=== PATIENT | male | born 1955 | race Caucasian/White ===

== ENCOUNTER 2023-01-24 15:25 | Outpatient (CLI) | payer MEDICARE | END 2023-01-24 15:26 | disposition home or self-care (01) | LOC: SCSRAD 15:25 | PROVIDERS: ATTEND Family Medicine | DX: M47.22 Other spondylosis with radiculopathy, cervical region (principal); M43.12 Spondylolisthesis, cervical region | CPT/HCPCS: 72052 ==

== ENCOUNTER 2023-08-02 13:41 | Inpatient (IN) | payer OTHER, MEDICARE ==
[~2023-08-02 13:41] MED LIST: Iopamidol-370 76% 500 ML MDV (1 ML CHARGE) ONE
[2023-08-02] MEDS ORDERED: Morphine 2 MG/ML VIAL SLOW IVP PRN (15:02)
[2023-08-02] MEDS ORDERED: Ondansetron PF 4 MG/2 ML Vial IVP PRN (15:02)
[2023-08-02] MEDS ORDERED: Ipratropium/Albuterol 3 ML NEB NEB PRN (15:02)
[2023-08-02] MEDS ORDERED: traMADol HCl 50 MG TAB PO PRN (15:05)
[2023-08-02] MEDS ORDERED: Cyclobenzaprine 10 MG TAB PO PRN (15:05)
[2023-08-02 15:10] LABS: #Basophils 0.1 thou/uL (0.0-0.2); #Eosinphils 0.1 thou/uL (0.0-0.7); #Monocytes 0.4 thou/uL (0.11-0.59); #Neutrophils 6.2 thou/uL (1.40-6.50); %Basophils 0.6 % (0.0-1.0); %Eosinophils 0.6 % (0.0-10.0); %Lymphocytes 12.8 % (21.0-51.0); %Monocytes 5.7 % (0.0-10.0); %Neutrophils 79.7 % (42.0-75.0); Hemoglobin 14.9 g/dL (14.0-18.0); Mean Corpuscular HGB CONC 33.9 g/dL (32.0-36.0); Mean Corpuscular Hemoglobin 32.3 pg (27.0-31.0); Mean Corpuscular Volume 95.4 fl (78.0-98.0); Mean Platelet Volume 11.7 fL (7.4-10.4); RBC Distribution Width 12.8 % (11.5-14.5); Red Blood Cell (RBC) Count 4.61 mill/uL (4.70-6.10); White Blood Cell (WBC) Count 7.7 10x3/uL (4.8-10.8)
[2023-08-02 15:13] LABS: Platelet Count 137 10x3/uL (130-400)
[2023-08-02 15:17] LABS: ALT (SGPT) 25 U/L (8-55); AST (SGOT) 32 U/L (5-34); Albumin 4.6 g/dL (3.4-4.8); Alkaline Phosphatase 45 U/L (40-110); Anion Gap 16 mmol/L (10-20); BUN (Urea Nitrogen) 30 mg/dL (8.4-25.7); Bilirubin, Total 0.8 mg/dL (0.2-1.2); Calc. Creatinine Clearance 0 mL/min (70-130); Calcium 9.6 mg/dL (7.8-10.44); Carbon Dioxide 22 mmol/L (23-31); Chloride 103 mmol/L (98-107); Estimated GFR 74; Globulin 2.6 g/dL (2.4-3.5); Glucose 97 mg/dL (80-115); Potassium 3.5 mmol/L (3.5-5.1); Protein, Total 7.2 g/dL (5.8-8.1); Sodium 137 mmol/L (136-145)
[2023-08-02] MEDS: traMADol HCl 50 MG TAB PO SCH ×2 (17:40→23:05)
[2023-08-02] MEDS: Acetaminophen 500 MG TAB PO SCH ×2 (17:41→23:06)
[2023-08-02] MEDS: Sodium Chloride 0.9% 1,000 ML IV SCH (17:41)
[2023-08-02 17:58] VITALS: BMI 27.3
[2023-08-02] MEDS: Senokot S 8.6-50 MG TAB PO SCH (21:11)
[2023-08-02] MEDS: Famotidine/PF 20 mg/2ml Vial SLOW IVP SCH (21:12)
[2023-08-03] MEDS: Sodium Chloride 0.9% 1,000 ML IV SCH (01:57)
[2023-08-03 05:41] LABS: Anion Gap 12 mmol/L (10-20); BUN (Urea Nitrogen) 22 mg/dL (8.4-25.7); Calc. Creatinine Clearance 93 mL/min (70-130); Calcium 8.2 mg/dL (7.8-10.44); Carbon Dioxide 24 mmol/L (23-31); Chloride 107 mmol/L (98-107); Estimated GFR 95; Glucose 82 mg/dL (80-115); Potassium 3.6 mmol/L (3.5-5.1); Sodium 139 mmol/L (136-145)
[2023-08-03] MEDS: Acetaminophen 500 MG TAB PO SCH ×4 (06:22→23:06)
[2023-08-03] MEDS: traMADol HCl 50 MG TAB PO SCH ×4 (06:23→23:07)
[2023-08-03] MEDS: Polyethylene Glycol 3350 17 GM Packet PO SCH (08:26)
[2023-08-03] MEDS: Senokot S 8.6-50 MG TAB PO SCH ×2 (08:26→20:25)
[2023-08-03] MEDS: Famotidine/PF 20 mg/2ml Vial SLOW IVP SCH ×2 (08:26→20:25)
[2023-08-03 09:05] LABS: #Monocytes 0.5 thou/uL (0.11-0.59); #Neutrophils 4.2 thou/uL (1.40-6.50); %Basophils 0.7 % (0.0-1.0); %Eosinophils 0.7 % (0.0-10.0); %Lymphocytes 11.7 % (21.0-51.0); %Monocytes 9.2 % (0.0-10.0); %Neutrophils 77.3 % (42.0-75.0); Hematocrit 38.3 % (42.0-52.0); Hemoglobin 13.2 g/dL (14.0-18.0); Mean Corpuscular HGB CONC 34.5 g/dL (32.0-36.0); Mean Platelet Volume 10.8 fL (7.4-10.4); RBC Distribution Width 12.5 % (11.5-14.5); Red Blood Cell (RBC) Count 4.12 mill/uL (4.70-6.10); White Blood Cell (WBC) Count 5.5 10x3/uL (4.8-10.8)
[2023-08-03 09:09] LABS: Platelet Count 110 10x3/uL (130-400)
[2023-08-03] MEDS: traZODone HCl 50 MG TAB PO SCH (20:25)
[2023-08-04] MEDS: Acetaminophen 500 MG TAB PO SCH (05:29)
[2023-08-04] MEDS: traMADol HCl 50 MG TAB PO SCH ×4 (05:29→23:08)
[2023-08-04 05:40] LABS: #Eosinphils 0.2 thou/uL (0.0-0.7); #Monocytes 0.6 thou/uL (0.11-0.59); #Neutrophils 3.5 thou/uL (1.40-6.50); %Basophils 0.7 % (0.0-1.0); %Lymphocytes 19.6 % (21.0-51.0); %Monocytes 11.1 % (0.0-10.0); %Neutrophils 65.2 % (42.0-75.0); Hematocrit 37.8 % (42.0-52.0); Mean Corpuscular HGB CONC 34.4 g/dL (32.0-36.0); Mean Corpuscular Hemoglobin 32.5 pg (27.0-31.0); Mean Corpuscular Volume 94.5 fl (78.0-98.0); Mean Platelet Volume 11.2 fL (7.4-10.4); Platelet Count 120 10x3/uL (130-400); RBC Distribution Width 12.8 % (11.5-14.5); White Blood Cell (WBC) Count 5.4 10x3/uL (4.8-10.8)
[2023-08-04] MEDS ORDERED: Gabapentin 300 MG CAP PO SCH (09:00)
[2023-08-04] MEDS: Famotidine/PF 20 mg/2ml Vial SLOW IVP SCH ×2 (09:55→21:48)
[2023-08-04] MEDS: Polyethylene Glycol 3350 17 GM Packet PO SCH (09:55)
[2023-08-04] MEDS: Senokot S 8.6-50 MG TAB PO SCH ×2 (09:55→21:48)
[2023-08-04] MEDS: Acetaminophen/Codeine 30-300mg Tablet PO SCH ×3 (11:48→23:08)
[2023-08-04] MEDS: Acetaminophen 325 MG TAB PO SCH ×3 (11:48→23:08)
[2023-08-04] MEDS: traZODone HCl 50 MG TAB PO SCH (21:48)
[2023-08-05] MEDS: traMADol HCl 50 MG TAB PO SCH ×2 (06:16→11:00)
[2023-08-05] MEDS: Acetaminophen/Codeine 30-300mg Tablet PO SCH ×2 (06:17→11:00)
[2023-08-05] MEDS: Acetaminophen 325 MG TAB PO SCH ×2 (06:17→11:00)
[2023-08-05] MEDS: Senokot S 8.6-50 MG TAB PO SCH (08:11)
[2023-08-05] MEDS: Polyethylene Glycol 3350 17 GM Packet PO SCH (08:12)
[2023-08-05] MEDS: Famotidine/PF 20 mg/2ml Vial SLOW IVP SCH (08:12)
[2023-08-05 08:17] VITALS: BP 130/84; TEMP 98
[2023-08-05] MEDS ORDERED: Sertraline 100 MG TAB PO SCH (09:00)
[2023-08-05] MEDS ORDERED: Non-Formulary Item 1 EACH (Sertraline Hcl [Zoloft] 50 MG Tablet) PO SCH (09:00)
== END 2023-08-05 13:18 | disposition home or self-care (01) | DRG 964 ==
LOC: ERS 13:41 → SURG B 15:02
PROVIDERS: ADMIT Student in an Organized Health Care Education/Training Program; ATTEND Student in an Organized Health Care Education/Training Program
DX: S36.031A Moderate laceration of spleen, initial encounter (principal); S22.42XA Multiple fractures of ribs, left side, initial encounter for closed fracture; S27.329A Contusion of lung, unspecified, initial encounter; V89.2XXA Person injured in unspecified motor-vehicle accident, traffic, initial encounter; M19.90 Unspecified osteoarthritis, unspecified site; Z98.890 Other specified postprocedural states; Z87.891 Personal history of nicotine dependence; Z79.899 Other long term (current) drug therapy
CPT/HCPCS: 36415; 70450; 71045; 71260; 72125; 74177; 80048; 80053; 85025; 86850; 86870; 86900; 86901; J7050; Q9967; S0028

== ENCOUNTER 2023-08-16 11:16 | Outpatient (CLI) | payer MEDICARE | END 2023-08-16 11:17 | disposition home or self-care (01) | LOC: BICRAD 11:16 | PROVIDERS: ATTEND Student in an Organized Health Care Education/Training Program | DX: S22.42XA Multiple fractures of ribs, left side, initial encounter for closed fracture (principal); J98.4 Other disorders of lung | CPT/HCPCS: 71046 ==